=== PATIENT | female | born 1955 | race African-American/Black ===

== ENCOUNTER → 2017-01-14 | Day surgery (SDC) | payer OTHER ==
[~2017-01-14] VITALS: Ht 154.9 cm; Wt 131.1 kg
[~2017-01-14] MED LIST: ATACAND8 MG PO; CRESTOR10 MG PO; DULERA 100 MCG/13 GM INH; HYDROCHLOROTHIA25 M2 PO; IBUPROFEN 800800 M1 PO; METFORMIN HCL500 MG PO; SINGULAIR 10 MG10 M1 PO; TRINATE TABLET1 TAB PO; VITAMIN D1000 UNI1 PO; ZOLOFT50 MG PO
--- NOTE | ~2017-01-14 | EKG ---
[address] [address] ELECTROCARDIOGRAM REPORT Name: NAKIA MENJIVAR Room #: REG [facility]#: [id number] Admission: 01/14/17 Attend Phys: Keely Owens, Discharge: Date of : 55 Report #: [id number] THIS REPORT FOR: //name// [facility] Test Date: 2017-01-14 Test Time: 09:40:45 Pat Name: NAKIA MENJIVAR Department: Room: Gender: F [employer]: GRACIE : 1955 Requested By: Keely Owens Order Number: [id number] MD: Rajinder Caraballo Measurements Intervals Jaffrey Rate: 68 P: 46 IA: 54 QRS: 16 QRSD: 92 T: 4 QT: 418 QTc: 445 Interpretive Statements Sinus rhythm Short IA interval Probable left atrial enlargement Low voltage, precordial leads Borderline T wave abnormalities Baseline wander in lead(s) V3 No previous ECG available for comparison Electronically Signed On 01-14-2017 15:59:02 CDT by Rajinder Caraballo [email or web address] <ELECTRONICALLY SIGNED> By: Rajinder Caraballo MD 01/14/17 1559 0940 0940 Rajinder Caraballo MD /EPI
--- NOTE | ~2017-01-14 | O ---
[facility] [address] OPERATIVE REPORT Name: NAKIA MENJIVAR Room #: REG [facility].#: [id number] Admission: 01/14/17 Attend Phys: Keely Owens, Discharge: Date of : 55 Report #: [id number] THIS REPORT FOR: //name// CC: Sonia Owens DATE OF SERVICE: 01/14/2017 PREOPERATIVE DIAGNOSIS: Left carpal tunnel syndrome. POSTOPERATIVE DIAGNOSIS: Left carpal tunnel syndrome. PROCEDURE PERFORMED: Left endoscopic carpal tunnel release. SURGEON: Keely Owens MD. ANESTHESIA: General laryngeal mask anesthesia. ESTIMATED BLOOD LOSS: 1 mL. TOURNIQUET TIME: 21 minutes. COMPLICATIONS: None. CONDITION: Stable. DISPOSITION: Recovery room. INDICATIONS: The patient is a 61-year-old female with the abovementioned diagnosis. She elected for operative treatment. The risks, benefits, alternatives, and complications were discussed including but were not limited to infection, damage to blood vessels or nerves, incomplete relief of her symptoms. An informed consent was obtained. The correct extremity was identified and labeled by myself. After verbal confirmation of the patient, as well as visual confirmation, a signed informed consent obtained. DESCRIPTION OF PROCEDURE: The patient was brought back to the operating room, placed on the operating table in supine position. She received preoperative antibiotics. Tourniquet was placed over, padding the patient's left upper extremity. The left upper extremity was then sterilely prepped and draped in the usual fashion. A final time-out was taken to verify the correct patient, operative procedure, and operative site, all concurred. The arm was elevated, exsanguinated, and the tourniquet inflated. The entire procedure was done with the aid of 3.5 times loupe magnification. The arm was elevated, exsanguinated, and the tourniquet inflated. Next, transverse incision was made at few millimeters proximal to the distal wrist crease in line with the ulnar border of [address] [address] OPERATIVE REPORT Name: NAKIA MENJIVAR Room #: [place] [facility] [place]#: [id number] Admission: 01/14/17 Attend Phys: Keely Owens, Discharge: Date of : 55 Report #: [id number] the palmaris longus tendon. Dissection was carried down through the subcutaneous tissue with tenotomy scissors. The antebrachial fascia was identified and incised. It was then incised for approximately 3 mm proximal. Next, an oblique incision was made at distal hook of hamate in line with the ring finger. Dissection was carried down through the subcutaneous tissue with tenotomy scissors. The fat was elevated off the fascia, and then the fascia was carefully incised. Next, a [place] elevator was placed through the carpal tunnel from proximal to distal with wrist in hyperextension and distributed pressure distally to avoid any injury to any neurovascular structures. tissue was elevated off the undersurface of the transverse carpal ligament. Next, the blunt trocar and cannula was inserted in the same fashion. The blunt trocar was removed, the camera was inserted, and I was able to visualize any transverse fibers at the undersurface of the transverse carpal ligament throughout the entire length of the carpal tunnel. The hook ablator was brought in distally, and the transverse carpal ligament was transected distally. The camera was inserted distally and transverse carpal ligament was transected proximally. Next, the blunt trocar and cannula were withdrawn and visualized the cut ends of the transverse carpal ligament. Next, my [place] elevator as well as my finger was placed retrograde to the carpal tunnel, I was still able to feel some fibers in the mid portion, and so the blunt trocar and cannula was again inserted in the same fashion under direct visualization using the scope. I was able to incise the remaining fibers of the transverse carpal ligament. Next, each incision was explored and any remaining fibers were released. The release was all the way from the antebrachial fascia in the forearm, all the way through the fat in the palm. The nerve was evaluated in the distal incision, as well as the proximal incision looked to be in good condition. The wounds were thoroughly irrigated. The skin was closed with 4-0 nylon suture. The wound was dressed with Adaptic and sterile gauze after infiltrating with approximately 6 mL of 0.25% Marcaine. All fingers were pink with brisk capillary refill at the conclusion of the case. After deflation of the tourniquet, all sponge and needle counts were correct. The patient transferred to the postoperative recovery room in stable condition. She tolerated the procedure well. By: 1157 1320 Keely Owens MD /nt
[2017-01-14 09:44] LABS: CALCIUM 9.1 mg/dL (8.5-10.1); CREATININE 0.7 mg/dL (0.6-1.0); POTASSIUM 4.1 mmol/L (3.5-5.1)
[2017-01-14 10:15] VITALS: BP 149/79
[2017-01-14 12:31] VITALS: BP 149/79
== END ==
LOC: OR 05:27
PROVIDERS: Orthopaedic Surgery Hand Surgery
DX: G56.02 Carpal tunnel syndrome, left upper limb (principal); J45.909 Unspecified asthma, uncomplicated; G47.30 Sleep apnea, unspecified; Z87.891 Personal history of nicotine dependence; I10 Essential (primary) hypertension; E78.00 Pure hypercholesterolemia, unspecified; F41.8 Other specified anxiety disorders; E11.40 Type 2 diabetes mellitus with diabetic neuropathy, unspecified
CPT/HCPCS: 50010; 50101; 50386; 56526; 56969; 57006; 57091; 62110; 62900; 70005

== ENCOUNTER 2017-06-14 05:15 | Day surgery (SDC) | payer OTHER ==
[~2017-06-14] VITALS: Ht 154.9 cm; Wt 129.3 kg
--- NOTE | ~2017-06-14 | O ---
[facility] [place] [address] OPERATIVE REPORT Name: NAKIA MENJIVAR Room #: 150-7 [facility] M.R.#: [id number] Admission: 06/14/17 Attend Phys: Keely Owens, Discharge: Date of : 55 Report #: [id number] THIS REPORT FOR: //name// CC: Sonia Owens DATE OF SERVICE: 06/14/2017 DIAGNOSIS: Right carpal tunnel syndrome. PROCEDURE PERFORMED: Right endoscopic carpal tunnel release. SURGEON: Keely Owens M.D. ANESTHESIA: General laryngeal mask anesthesia. ESTIMATED BLOOD LOSS: 1 mL. TOURNIQUET TIME: 15 minutes. COMPLICATIONS: None. CONDITION: Stable. DISPOSITION: Recovery room. INDICATIONS: The patient is a 62-year-old female with the above-mentioned diagnosis. She elected for operative treatment. The risks, benefits, alternatives and complications were discussed, including but were not limited to, infection, damage to blood vessels or nerves and incomplete relief of her symptoms. An informed consent was obtained. The correct extremity was identified and labeled by myself. After verbal confirmation of the patient as well as the visual confirmation, a signed informed consent . DESCRIPTION OF PROCEDURE: The patient was brought back to the operating room and placed on the operating table in supine position. She received preoperative antibiotics. Tourniquet was placed over padding of the patient's right upper extremity. The right upper extremity was sterilely prepped and draped in the usual fashion. Final time-out was taken to verify the correct patient, operative procedure and operative site; all concurred. The arm was elevated, exsanguinated and the tourniquet inflated. The entire procedure was done with the aid of 3.5 times loupe magnification. Next, a transverse incision was made a few millimeters proximal to the distal wrist crease in line with the ulnar border of the palmaris longus tendon. Dissection was carried down through the subcutaneous tissue with tenotomy [address] [address] OPERATIVE REPORT Name: NAKIA MENJIVAR Room #: 150-7 [facility] M.R.#: [id number] Admission: 06/14/17 Attend Phys: Keely Owens, Discharge: Date of : 55 Report #: [id number] scissors. The antebrachial fascia was identified and incised. It was then incised for a few millimeters proximal. Next, an oblique incision was made at the distal hook of hamate in line with the ring finger. Dissection was carried down through the subcutaneous tissue with tenotomy scissors. The fat was elevated off the fascia and the fascia was carefully incised. Next, a [place] elevator was placed through the carpal tunnel proximal to distal, with the wrist in hyperextension and digital pressure distally to avoid injury to the superficial arch. Any significant tissue was elevated off the undersurface of the transverse carpal ligament. Next, the blunt trocar and camera were inserted in the same fashion. The blunt trocar was removed, the camera was inserted and any transverse fibers at the undersurface of the transverse carpal ligament were identified. A hook ablator was brought in distally and the transverse carpal ligament was transected distally. Next, the camera was inserted distally and the proximal portion of the transverse carpal ligament was transected. Next, the camera and cannula were withdrawn and visualized the cut ends of the transverse carpal ligament. Next, the proximal incision was explored. There were no remnants of the transverse carpal ligament remaining. However, in the distal portion, there was approximately 1.5 cm that remained. So, the blunt trocar and cannula were inserted in the same fashion again. The blunt trocar was removed and the nice transverse fibers distally were easily seen. The hook ablator was brought in distally and the remaining portion of the transverse carpal ligament was transected. The instrumentation was removed. The distal wound was explored. The nerve looked to be in excellent condition and released all the way to the fat in the palm. The wounds were thoroughly irrigated and my small finger was placed through the carpal tunnel and no remnants of the transverse carpal ligament remained. The wounds were closed with 4-0 nylon suture once they were dressed with Adaptic and sterile gauze after infiltrating the subcutaneous tissue with approximately 8 mL of 0.25% Marcaine. All fingers were pink with brisk capillary refill at the conclusion of the case. After deflation of the tourniquet, all sponge and needle counts were correct. The patient was transferred to the postoperative recovery room in stable condition. By: 0930 1034 Keely Owens MD /valentino
[~2017-06-14 05:15] MED LIST changes: +PRENATAL PO
[2017-06-14 08:25] LABS: CALCIUM 9.3 mg/dL (8.5-10.1); CREATININE 0.9 mg/dL (0.6-1.0); POTASSIUM 3.9 mmol/L (3.5-5.1)
[2017-06-14 08:30] VITALS: BP 120/77
== END 2017-06-14 11:00 | disposition home or self-care (01) ==
LOC: OR 05:15 → TBA 05:15 → OR 09:34
PROVIDERS: Orthopaedic Surgery Hand Surgery
DX: G56.01 Carpal tunnel syndrome, right upper limb (principal); I10 Essential (primary) hypertension; E78.00 Pure hypercholesterolemia, unspecified; J45.909 Unspecified asthma, uncomplicated; F32.9 Major depressive disorder, single episode, unspecified; F41.9 Anxiety disorder, unspecified; E11.9 Type 2 diabetes mellitus without complications; M19.90 Unspecified osteoarthritis, unspecified site; Z87.891 Personal history of nicotine dependence; Z98.890 Other specified postprocedural states
CPT/HCPCS: 50010; 50101; 50386; 56526; 56969; 57006; 57091; 62110; 62900; 70005